=== PATIENT | male | born 1950 | race Caucasian/White ===

== ENCOUNTER → 2018-11-18 | Outpatient (CLI) | payer OTHER ==
[~2018-11-18] MED LIST: ATEN50 PO; DIGO.25 PO; GABA300 PO; LEVEMIR FL100 UNIT/1 SC; LISI5 PO; METF500 PO; Novolog Fl100 UNIT/1 SC; Sudogest60 MG PO; WARF5 PO
[2018-11-21 14:26] LABS: Stool Occult Bld Immuno 1 Negative (NEGATIVE)
== END | disposition home or self-care (01) ==
LOC: LAB 15:30 → LAB SHORT 15:30
PROVIDERS: Nurse Practitioner Family
DX: Z12.11 Encounter for screening for malignant neoplasm of colon (principal)
CPT/HCPCS: G0328

== ENCOUNTER 2019-11-22 13:48 | Emergency (ER) | payer OTHER ==
[~2019-11-22] VITALS: Ht 188 cm; Wt 103.9 kg
[2019-11-22 14:24] LABS: BASOPHILS ABSOLUTE AUTO 0.05 K/mm3 (0.00-0.23); BASOPHILS PERCENT AUTO 0 % (0-2); EOSINOPHILS ABSOLUTE AUTO 0.16 K/mm3 (0.00-0.68); EOSINOPHILS PERCENT AUTO 1 % (0-6); Hematocrit 40.9 % (37.0-53.0); Hemoglobin 13.7 g/dL (13.5-17.5); IMMATURE GRAN ABSOLUTE AUTO 0.03 K/mm3 (0.00-0.10); IMMATURE GRAN PERCENT AUTO 0 % (0-1); LYMPHOCYTES ABSOLUTE AUTO 3.43 K/mm3 (0.84-5.20); LYMPHOCYTES PERCENT AUTO 29 % (21-46); MONOCYTES PERCENT AUTO 8 % (4-13); Mean Corpuscular HGB 30.7 pg (26.0-34.0); Mean Corpuscular HGB Conc 33.5 g/dL (31.5-36.5); Mean Corpuscular Volume 92 fL (80-100); NEUTROPHILS ABSOLUTE AUTO 7.38 K/mm3 (1.96-9.15); NEUTROPHILS PERCENT AUTO 61 % (41-73); Platelet Count 331 K/mm3 (150-400); RDW Coefficient Variation 13.3 % (11.7-14.2); RDW Standard Deviation 45.3 fL (35.1-46.3); Red Blood Cell Count 4.46 M/mm3 (4.30-5.90); White Blood Cell Count 12.05 K/mm3 (4.00-11.30)
[2019-11-22 14:35] LABS: Source, Urine Clean Catch
[2019-11-22 14:45] LABS: Alanine Aminotransfer (ALT/SGP 21 U/L (12-78); Albumin, Blood 3.7 g/dL (3.4-5.0); Albumin/Globulin Ratio 0.9 (0.8-1.8); Alk Phos 90 U/L (50-136); Anion Gap 6 mmol/L (6-16); Aspartate Aminotrans (AST/SGOT 16 U/L (12-37); Bilirubin, Total 1.6 mg/dL (0.1-1.0); Blood Urea Nitrogen 16 mg/dL (8-24); Bun/Creatinine Ratio 19.5 (12.0-20.0); CO2, Blood 26 mmol/L (21-32); Calcium, Blood 9.4 mg/dL (8.5-10.1); Chloride, Blood 106 mmol/L (98-108); Creatinine, Blood 0.82 mg/dL (0.60-1.20); Globulin, Blood 4.3 g/dL (2.2-4.0); Glomerular Filtration Rate >60 (60-); Glucose, Blood 135 mg/dL (70-99); Potassium, Blood 4.4 mmol/L (3.5-5.5); Sodium, Blood 138 mmol/L (136-145)
[2019-11-22 14:56] LABS: Bilirubin, Urine Neg (Neg); Blood, Urine 5+ (Neg); Glucose Qualitative, Urine Neg (Neg); Ketones, Urine Neg (Neg); Leukocyte Esterase, Urine Neg (Neg); Nitrite, Urine Neg (Neg); Protein, Urine 1+ (Neg); Urobilinogen, Urine NORM (Normal)
[2019-11-22 15:04] LABS: Appearance, Urine Hazy (Clear); Color, Urine Yellow (P-Yellow)
[2019-11-22 15:05] LABS: Red Blood Cells, Urine TNTC /hpf (0-2); White Blood Cells, Urine 0-2 /hpf (0-5)
[2019-11-22 15:06] LABS: Bacteria Rare /hpf; Squamous Epithelial Cells Rare /hpf (Few)
[2019-11-22] MEDS ORDERED: Flomax0.4 MG PO (16:23)
[2019-11-22] MEDS ORDERED: Percocet 5-3251 EACH PO (16:23)
[2019-11-22] MEDS ORDERED: ONDA4ODT MM (16:23)
== END 2019-11-22 16:42 | disposition home or self-care (01) ==
LOC: ER 13:48
PROVIDERS: Emergency Medicine; Physician Assistant
DX: N20.0 Calculus of kidney (principal); I10 Essential (primary) hypertension; E11.9 Type 2 diabetes mellitus without complications; I48.91 Unspecified atrial fibrillation; Z88.5 Allergy status to narcotic agent; Z79.4 Long term (current) use of insulin; Z79.899 Other long term (current) drug therapy; Z79.01 Long term (current) use of anticoagulants; Z95.0 Presence of cardiac pacemaker
CPT/HCPCS: 36415; 80053; 81001; 85025; 99284

== ENCOUNTER → 2021-04-07 | Outpatient (CLI) | payer OTHER ==
[~2021-04-07] MED LIST changes: +Flomax0.4 MG PO; +ONDA4ODT MM; +Percocet 5-3251 EACH PO
[2021-04-07 18:03] LABS: Alanine Aminotransfer (ALT/SGP 17 U/L (12-78); Albumin, Blood 3.4 g/dL (3.4-5.0); Albumin/Globulin Ratio 0.9 (0.8-1.8); Alk Phos 91 U/L (50-136); Anion Gap 5 mmol/L (6-16); Aspartate Aminotrans (AST/SGOT 10 U/L (12-37); Blood Urea Nitrogen 15 mg/dL (8-24); Bun/Creatinine Ratio 16.4 (12.0-20.0); CO2, Blood 27 mmol/L (21-32); Calcium, Blood 8.6 mg/dL (8.5-10.1); Chloride, Blood 106 mmol/L (98-108); Creatinine, Blood 0.92 mg/dL (0.60-1.20); Globulin, Blood 3.9 g/dL (2.2-4.0); Glomerular Filtration Rate >60 (60-); Glucose, Blood 179 mg/dL (70-99); Phosphorus, Blood 3.3 mg/dL (2.5-4.9); Potassium, Blood 4.7 mmol/L (3.5-5.5); Sodium, Blood 138 mmol/L (136-145); Total Protein, Blood 7.3 g/dL (6.4-8.2)
== END ==
LOC: LAB SHORT 12:09
PROVIDERS: Internal Medicine Hematology & Oncology
DX: D47.2 Monoclonal gammopathy (principal)
CPT/HCPCS: 80053; 84100

== ENCOUNTER → 2021-08-04 | Outpatient (CLI) | payer OTHER ==
[2021-08-04 13:44] LABS: Percent Saturation 19.6 % (20.0-50.0)
== END | disposition home or self-care (01) ==
LOC: LAB 10:31 → LAB SHORT 10:31
PROVIDERS: Internal Medicine Hematology & Oncology
DX: D47.2 Monoclonal gammopathy (principal); E61.1 Iron deficiency
CPT/HCPCS: 82728; 83521; 83540; 83550

== ENCOUNTER → 2023-08-06 | Outpatient (CLI) | payer OTHER ==
[~2023-08-06] MED LIST changes: +ASPI81CH PO; +ATOR20 PO; +ATOR40TA PO; +ELIQUIS5 M2 PO; +FERSU300 PO; +INSULANPEN SC; -LEVEMIR FL100 UNIT/1 SC; +LEVEMIR100 UNIT/1 SC; +METO25ER PO; +TAMS.4ER PO
[2023-08-06 12:12] LABS: BASOPHILS ABSOLUTE AUTO 0.04 K/mm3 (0.00-0.23); BASOPHILS PERCENT AUTO 0 % (0-2); EOSINOPHILS ABSOLUTE AUTO 0.14 K/mm3 (0.00-0.68); EOSINOPHILS PERCENT AUTO 2 % (0-6); Hematocrit 42.5 % (37.0-53.0); Hemoglobin 14.4 g/dL (13.5-17.5); IMMATURE GRAN ABSOLUTE AUTO 0.01 K/mm3 (0.00-0.10); IMMATURE GRAN PERCENT AUTO 0 % (0-1); LYMPHOCYTES ABSOLUTE AUTO 3.16 K/mm3 (0.84-5.20); LYMPHOCYTES PERCENT AUTO 34 % (21-46); MONOCYTES ABSOLUTE AUTO 0.62 K/mm3 (0.16-1.47); MONOCYTES PERCENT AUTO 7 % (4-13); Mean Corpuscular HGB Conc 33.9 g/dL (31.5-36.5); Mean Corpuscular Volume 92 fL (80-100); Mean Platelet Volume 10.9 fL (9.1-12.4); NEUTROPHILS ABSOLUTE AUTO 5.31 K/mm3 (1.96-9.15); NEUTROPHILS PERCENT AUTO 57 % (41-73); Platelet Count 374 K/mm3 (150-400); RDW Coefficient Variation 14.3 % (11.7-14.2); Red Blood Cell Count 4.64 M/mm3 (4.30-5.90); White Blood Cell Count 9.28 K/mm3 (4.00-11.30)
[2023-08-06 12:25] LABS: Albumin, Blood 3.7 g/dL (3.4-5.0); Albumin/Globulin Ratio 0.6 (0.8-1.8); Bilirubin, Total 2.3 mg/dL (0.1-1.0); Bun/Creatinine Ratio 16.9 (12.0-20.0); Creatinine, Blood 0.89 mg/dL (0.60-1.20); Globulin, Blood 6.1 g/dL (2.2-4.0); Potassium, Blood 3.7 mmol/L (3.5-5.5); Total Protein, Blood 9.8 g/dL (6.4-8.2)
== END ==
LOC: LAB 11:17 → LAB SHORT 11:17
PROVIDERS: Student in an Organized Health Care Education/Training Program
DX: R11.2 Nausea with vomiting, unspecified (principal)
CPT/HCPCS: 80053; 85025

== ENCOUNTER 2023-11-12 15:20 | Inpatient (IN) | payer OTHER ==
[~2023-11-12] VITALS: Ht 188 cm; Wt 103.4 kg
[2023-11-12] MEDS ORDERED: Lactated Ringer's 1,000 ML IV SCH ×3 (18:30→23:20)
[2023-11-12] MEDS ORDERED: Ondansetron HCl 2 MG / ML 2ML Vial IV ONE (18:35)
[2023-11-12] MEDS ORDERED: FentaNYL Citrate 50 MCG/ML 2 ML Injection IV ONE ×3 (18:35→22:40)
[2023-11-12 18:43] LABS: BASOPHILS ABSOLUTE AUTO 0.04 K/mm3 (0.00-0.23); BASOPHILS PERCENT AUTO 0 % (0-2); EOSINOPHILS ABSOLUTE AUTO 0.02 K/mm3 (0.00-0.68); EOSINOPHILS PERCENT AUTO 0 % (0-6); Hematocrit 31.6 % (37.0-53.0); Hemoglobin 10.8 g/dL (13.5-17.5); IMMATURE GRAN ABSOLUTE AUTO 0.03 K/mm3 (0.00-0.10); IMMATURE GRAN PERCENT AUTO 0 % (0-1); LYMPHOCYTES PERCENT AUTO 21 % (21-46); MONOCYTES ABSOLUTE AUTO 0.92 K/mm3 (0.16-1.47); MONOCYTES PERCENT AUTO 8 % (4-13); Mean Corpuscular HGB 31.5 pg (26.0-34.0); Mean Corpuscular HGB Conc 34.2 g/dL (31.5-36.5); Mean Corpuscular Volume 92 fL (80-100); Mean Platelet Volume 10.8 fL (9.1-12.4); NEUTROPHILS ABSOLUTE AUTO 8.62 K/mm3 (1.96-9.15); NEUTROPHILS PERCENT AUTO 71 % (41-73); Platelet Count 320 K/mm3 (150-400); RDW Coefficient Variation 13.6 % (11.7-14.2); RDW Standard Deviation 45.9 fL (35.1-46.3); Red Blood Cell Count 3.43 M/mm3 (4.30-5.90); White Blood Cell Count 12.13 K/mm3 (4.00-11.30)
[2023-11-12 18:50] LABS: International Normalized Ratio 0.99; Prothrombin Time Results 10.6 Sec (9.7-11.5)
[2023-11-12 18:58] LABS: Albumin, Blood 3.7 g/dL (3.4-5.0); Albumin/Globulin Ratio 0.7 (0.8-1.8); Bilirubin, Total 2.2 mg/dL (0.1-1.0); Bun/Creatinine Ratio 33.8 (12.0-20.0); Calcium, Blood 8.7 mg/dL (8.5-10.1); Creatinine, Blood 0.92 mg/dL (0.60-1.20); Globulin, Blood 5.1 g/dL (2.2-4.0); Potassium, Blood 4.7 mmol/L (3.5-5.5); Total Protein, Blood 8.8 g/dL (6.4-8.2)
[2023-11-12 20:34] LABS: Source, Urine Clean Catch
[2023-11-12 20:52] LABS: Bilirubin, Urine Neg (Neg); Blood, Urine Neg (Neg); Glucose Qualitative, Urine 4+ (Neg); Ketones, Urine 3+ (Neg); Leukocyte Esterase, Urine Neg (Neg); Nitrite, Urine Neg (Neg); Protein, Urine Neg (Neg); Specific Gravity, Urine 1.015 (1.003-1.022); Urobilinogen, Urine NORM (Normal)
[2023-11-12 20:58] LABS: Appearance, Urine Clear (Clear); Color, Urine Pale Yellow (P-Yellow)
[2023-11-12] MEDS ORDERED: Acetaminophen 325 MG TABLET PO PRN (21:25)
[2023-11-12] MEDS ORDERED: FentaNYL Citrate 50 MCG/ML 2 ML Injection ONE (22:34)
[2023-11-12] MEDS ORDERED: Morphine Sulfate 4 MG/1 ML Injection IV ONE (23:20)
[2023-11-12 23:38] VITALS: BP 172/83
[2023-11-13 00:05] LABS: Hematocrit 29.3 % (37.0-53.0); Hemoglobin 10.1 g/dL (13.5-17.5); Mean Corpuscular HGB Conc 34.5 g/dL (31.5-36.5); Mean Corpuscular Volume 93 fL (80-100); Mean Platelet Volume 10.8 fL (9.1-12.4); Platelet Count 307 K/mm3 (150-400); RDW Coefficient Variation 13.4 % (11.7-14.2); RDW Standard Deviation 45.4 fL (35.1-46.3); Red Blood Cell Count 3.16 M/mm3 (4.30-5.90); White Blood Cell Count 11.03 K/mm3 (4.00-11.30)
--- NOTE | 2023-11-13 00:50 | NUR ---
NOTIFIED DR JOHNSON OF CRITICAL RESULT 2.7 LACTIC,REVIEWED WITH DOCTOR LABS, ASSESSMENT OF PT,PT C/O L CHEST PAIN WHICH HE REPORTED SITE OF INJURY AND SAME PAIN ON INITIAL ADMIT.HOWEVER, REPORTED TO HIS FLOOR NURSE FELT LIKE "HEART ATTACK" I DISCUSSED THIS WITH DOCTOR WELL. I ADVISED DR THERE WERE NO CARE ORDERS FOR THIS PT AND HE STATED HE WOULD REVIEW AND PUT IN ORDERS.
[2023-11-13] MEDS ORDERED: TraMADol HCl 50 MG Tab PO PRN (01:10)
[2023-11-13] MEDS ORDERED: NS 1,000 ML IV SCH (02:00)
[2023-11-13 02:30] VITALS: BP 155/85
--- NOTE | 2023-11-13 04:13 | NUR ---
SHIFT SUMMARY A&OX4. PT ABLE TO VOICE NEEDS, CALL LIGHT IN REACH. PAIN MANAGED WITH NPIS AND PER EMAR. CHEST TUBE SETTINGS PER MD ORDERS, PATENT. THICK SANGUINOUS OUTPUT. IVF PER MD ORDERS. NPO STATUS, SIPS WITH PO MEDICATIONS. PT ABLE TO REST DURING SHIFT. VOIDING WITH BEDSIDE URINAL. PT VOICED UNDERSTANDING, DENIES QUESTIONS/CONCERNS AT THIS TIME.
[2023-11-13 04:55] LABS: BASOPHILS ABSOLUTE AUTO 0.02 K/mm3 (0.00-0.23); BASOPHILS PERCENT AUTO 0 % (0-2); EOSINOPHILS PERCENT AUTO 0 % (0-6); Hematocrit 27.4 % (37.0-53.0); Hemoglobin 9.5 g/dL (13.5-17.5); IMMATURE GRAN ABSOLUTE AUTO 0.06 K/mm3 (0.00-0.10); IMMATURE GRAN PERCENT AUTO 1 % (0-1); LYMPHOCYTES ABSOLUTE AUTO 2.28 K/mm3 (0.84-5.20); LYMPHOCYTES PERCENT AUTO 19 % (21-46); MONOCYTES ABSOLUTE AUTO 0.81 K/mm3 (0.16-1.47); MONOCYTES PERCENT AUTO 7 % (4-13); Mean Corpuscular HGB 32.3 pg (26.0-34.0); Mean Corpuscular HGB Conc 34.7 g/dL (31.5-36.5); Mean Corpuscular Volume 93 fL (80-100); NEUTROPHILS ABSOLUTE AUTO 8.62 K/mm3 (1.96-9.15); NEUTROPHILS PERCENT AUTO 73 % (41-73); Platelet Count 293 K/mm3 (150-400); RDW Coefficient Variation 13.4 % (11.7-14.2); RDW Standard Deviation 45.8 fL (35.1-46.3); Red Blood Cell Count 2.94 M/mm3 (4.30-5.90); White Blood Cell Count 11.79 K/mm3 (4.00-11.30)
[2023-11-13 05:14] LABS: Albumin, Blood 3.1 g/dL (3.4-5.0); Albumin/Globulin Ratio 0.7 (0.8-1.8); Bilirubin, Total 1.7 mg/dL (0.1-1.0); Bun/Creatinine Ratio 27.4 (12.0-20.0); Calcium, Blood 8.3 mg/dL (8.5-10.1); Creatinine, Blood 0.8 mg/dL (0.60-1.20); Globulin, Blood 4.6 g/dL (2.2-4.0); Total Protein, Blood 7.7 g/dL (6.4-8.2)
[2023-11-13] MEDS ORDERED: Insulin Regular 100 UNIT/ML 10ML Vial SC SCH ×2 (06:00→12:05)
[2023-11-13 07:11] VITALS: BP 131/67
[2023-11-13] MEDS ORDERED: Insulin Glargine-Yfgn 100 Unit/mL 3 ML SYR SC SCH ×2 (12:00→21:00)
[2023-11-13 12:50] LABS: Percent Saturation 13.1 % (20.0-50.0)
[2023-11-13] MEDS ORDERED: Metoprolol Succinate 25 MG TABCR PO SCH (13:00)
[2023-11-13 13:24] VITALS: BP 144/70
[2023-11-13 14:41] VITALS: BP 135/61
[2023-11-13] MEDS ORDERED: Insulin Human Lispro 100 Units/ML 3ML Syringe SC SCH ×2 (16:30→18:35)
[2023-11-13 19:27] VITALS: BP 135/55
--- NOTE | 2023-11-13 20:17 | NUR ---
SHIFT SUMMARY PT HAS CHEST TO TO -20, NO AIR LEAK. PAIN MANAGED WITH TYLENOL AND ULTRAM. PT IS PAINFUL WITH MOVEMENT AND DECLINED TO GET OOB THIS SHIFT. PT ALERT/ORIENTED. PT CALLS APPROPRIATELY. BEDSIDE REPORT GIVEN TO NANCY MINAYA.
[2023-11-14 03:22] VITALS: BP 113/70
[2023-11-14 04:10] LABS: Hematocrit 26.9 % (37.0-53.0); Hemoglobin 9.2 g/dL (13.5-17.5); Mean Corpuscular HGB 31.6 pg (26.0-34.0); Mean Corpuscular HGB Conc 34.2 g/dL (31.5-36.5); Mean Corpuscular Volume 92 fL (80-100); Mean Platelet Volume 10.4 fL (9.1-12.4); Platelet Count 288 K/mm3 (150-400); RDW Coefficient Variation 13.4 % (11.7-14.2); RDW Standard Deviation 45.3 fL (35.1-46.3); Red Blood Cell Count 2.91 M/mm3 (4.30-5.90); White Blood Cell Count 10.56 K/mm3 (4.00-11.30)
[2023-11-14 04:32] LABS: Bun/Creatinine Ratio 26.2 (12.0-20.0); Calcium, Blood 8.2 mg/dL (8.5-10.1); Creatinine, Blood 0.73 mg/dL (0.60-1.20); Potassium, Blood 3.6 mmol/L (3.5-5.5)
--- NOTE | 2023-11-14 05:19 | NUR ---
SHIFT SUMMARY PT ABLE TO REST MOST OF NIGHT. CHEST TUBE IN PLACE DRAINING SEROSANGUINEOUS FLUID, NO SIGNS OF AIR LEAK. VSS. PAIN PANAGED W/ PO TRAMADOL. PT TOLERATING PO FLUIDS AND DIET. URINATING IND IN URINAL. CALLING APPROPRIATELY.
[2023-11-14 07:17] VITALS: BP 130/76
[2023-11-14] MEDS ORDERED: Docusate Sodium 100 MG Cap PO SCH (09:00)
[2023-11-14 14:49] VITALS: BP 136/64
--- NOTE | 2023-11-14 19:17 | NUR ---
SHIFT SUMMARY UNCHANGED T/O SHIFT. CT TO SX T/O SHIFT. WEAK COUGH. ENCOURAGED TCDB.
[2023-11-14 19:24] VITALS: BP 143/72
[2023-11-15 00:17] VITALS: BP 135/86
[2023-11-15 05:14] LABS: Hematocrit 27.5 % (37.0-53.0); Hemoglobin 9.6 g/dL (13.5-17.5)
[2023-11-15 05:18] VITALS: BP 144/73
--- NOTE | 2023-11-15 07:34 | NUR ---
SHIFT SUMMARY NOC. PT ADMITTED WITH FX RIBS AND HEMOTHORAX. PT A/O X4, PT MEDICATED FOR PAIN IN CHEST TUBE SITE X2 WITH REPORTED RELIEF OF SX. PT VOIDING URINE INDEPENDENTLY VIA URINAL AND TOLERATING PO INTAKE. PT ON RA WITH BIOX INPLACE, DENIED SX OF SOB AND NO ACUTE EVENTS THIS SHIFT. CALL LIGHT IN REACH.
[2023-11-15 07:43] VITALS: BP 141/88
[2023-11-15] MEDS ORDERED: Magnesium Hydroxide Conc 10 ML UDC PO PRN (12:00)
[2023-11-15 15:27] VITALS: BP 125/74
[2023-11-15] MEDS ORDERED: Ferrous Sulfate 325 MG Tab PO SCH (17:00)
[2023-11-15 19:29] VITALS: BP 135/68
--- NOTE | 2023-11-15 19:41 | NUR ---
SHIFT SUMMARY PT DECLINES GETTING OOB, BUT MOVED WELL FOR BEDBATH. PAIN WELL CONTROLLED. CT CONTINUES TO HAVE OUTPUT.
[2023-11-15 23:21] VITALS: BP 133/65
[2023-11-16 04:05] VITALS: BP 130/82
[2023-11-16 05:22] LABS: BASOPHILS ABSOLUTE AUTO 0.02 K/mm3 (0.00-0.23); BASOPHILS PERCENT AUTO 0 % (0-2); EOSINOPHILS ABSOLUTE AUTO 0.05 K/mm3 (0.00-0.68); EOSINOPHILS PERCENT AUTO 0 % (0-6); Hematocrit 27.1 % (37.0-53.0); Hemoglobin 9.4 g/dL (13.5-17.5); IMMATURE GRAN ABSOLUTE AUTO 0.02 K/mm3 (0.00-0.10); IMMATURE GRAN PERCENT AUTO 0 % (0-1); LYMPHOCYTES ABSOLUTE AUTO 2.92 K/mm3 (0.84-5.20); LYMPHOCYTES PERCENT AUTO 25 % (21-46); MONOCYTES ABSOLUTE AUTO 1.21 K/mm3 (0.16-1.47); MONOCYTES PERCENT AUTO 11 % (4-13); Mean Corpuscular HGB 31.5 pg (26.0-34.0); Mean Corpuscular HGB Conc 34.7 g/dL (31.5-36.5); Mean Corpuscular Volume 91 fL (80-100); Mean Platelet Volume 10.6 fL (9.1-12.4); NEUTROPHILS ABSOLUTE AUTO 7.35 K/mm3 (1.96-9.15); NEUTROPHILS PERCENT AUTO 64 % (41-73); Platelet Count 390 K/mm3 (150-400); RDW Coefficient Variation 13.2 % (11.7-14.2); RDW Standard Deviation 43.4 fL (35.1-46.3); Red Blood Cell Count 2.98 M/mm3 (4.30-5.90); White Blood Cell Count 11.57 K/mm3 (4.00-11.30)
[2023-11-16 05:52] LABS: Albumin, Blood 2.4 g/dL (3.4-5.0); Albumin/Globulin Ratio 0.4 (0.8-1.8); Bilirubin, Total 1.3 mg/dL (0.1-1.0); Bun/Creatinine Ratio 23.6 (12.0-20.0); Calcium, Blood 8.5 mg/dL (8.5-10.1); Creatinine, Blood 0.72 mg/dL (0.60-1.20); Globulin, Blood 5.4 g/dL (2.2-4.0); Potassium, Blood 3.3 mmol/L (3.5-5.5); Total Protein, Blood 7.8 g/dL (6.4-8.2)
--- NOTE | 2023-11-16 07:15 | NUR ---
SHIFT SUMMARY NOC. PT ADMITTED WITH FX RIBS AND HEMOTHORAX. PT A/O X4, PT DANGLED AT EDGE OF BED THIS SHIFT. CHEST TUBE CONNECTED WITH NO KINKS, PRODUCING SEROSSANG DRAINAGE OUTPUT OF 50ML. PT DENIED PAIN THIS SHIFT. BIOX IN PLACE, DENIED SX OF SOB. CALL LIGHT IN REACH.
[2023-11-16 07:32] VITALS: BP 140/76
[2023-11-16] MEDS ORDERED: Polyethylene Glycol 3350 17 gm PO PRN (08:10)
[2023-11-16] MEDS ORDERED: Potassium Chloride 20 MEQ TabCR PO ONE (08:10)
[2023-11-16] MEDS ORDERED: Acetaminophen 500 MG Tab PO SCH (08:30)
[2023-11-16] MEDS ORDERED: NOVOLOG FL100 UNIT/3 SC (13:07)
[2023-11-16] MEDS ORDERED: METFORMIN HCL500 M2 PO (13:08)
[2023-11-16 14:26] VITALS: BP 110/71
--- NOTE | 2023-11-16 18:10 | NUR ---
SHIFT SUMMARY PT A&O X4, UP TO CHAIR MOST OF AFTERNOON. CONTINUOUS PULSE OX IN PLACE./ CT DRAINING SEROSANGENOUS FLUID WITHOUT KINKS OR OCCLUSIONS. CALL LIGHT IN REACH. PT DENIES OTHER NEEDS AT THIS TIME.
[2023-11-16 19:53] VITALS: BP 131/81
--- NOTE | 2023-11-16 20:13 | NUR ---
SHIFT SUMMARY CHEST TUBE REMAINS IN PLACE. PT TOLERATING WELL. HE HAS BEEN ON RA T/O THE DAY. PAIN HAS BEEN MANAGED WITH TYLENOL AND ULTRAM. PT REPORTS INCREASE IN L RIB PAIN THIS EVENING AFTER ATTEMPTING TO PULL HIS GOWN OUT FROM BEHIND HIM. PT ENCOURAGED TO ASK FOR ASSISTANCE WITH REPOSITIONING IN ORDER TO PREVENT PAIN OR RISK DISLODGING THE CHEST TUBE. PT IS A 1-2 ASSIST WHEN OOB, HE REQUIRES HELP WITH LINES AND TUBES. CHEST TUBE DRAINAGE WAS 40ML THIS SHIFT. NO AIR LEAK PRESENT. BOWEL CARE PROTOCOL STARTED. PT USES CALL LIGHT APPROPRIATELY. BEDSIDE REPORT GIVEN TO NANCY RODRÍGUEZ.
[2023-11-16] MEDS ORDERED: Docusate Sodium/Senna 1 Tab PO SCH (21:00)
[2023-11-17 00:18] VITALS: BP 150/80
[2023-11-17 04:16] VITALS: BP 132/80
[2023-11-17 04:32] LABS: Hematocrit 25.6 % (37.0-53.0); Hemoglobin 8.9 g/dL (13.5-17.5); Mean Corpuscular HGB 31.7 pg (26.0-34.0); Mean Corpuscular HGB Conc 34.8 g/dL (31.5-36.5); Mean Corpuscular Volume 91 fL (80-100); Mean Platelet Volume 10.1 fL (9.1-12.4); Platelet Count 378 K/mm3 (150-400); RDW Coefficient Variation 13.2 % (11.7-14.2); RDW Standard Deviation 43.8 fL (35.1-46.3); Red Blood Cell Count 2.81 M/mm3 (4.30-5.90); White Blood Cell Count 9.89 K/mm3 (4.00-11.30)
[2023-11-17 04:58] LABS: Albumin, Blood 2.1 g/dL (3.4-5.0); Anion Gap 11 mmol/L (3-11); Blood Urea Nitrogen 18 mg/dL (8-24); Bun/Creatinine Ratio 23.8 (12.0-20.0); CO2, Blood 27 mmol/L (21-32); Calcium, Blood 8.4 mg/dL (8.5-10.1); Chloride, Blood 101 mmol/L (98-108); Creatinine, Blood 0.76 mg/dL (0.60-1.20); Ferritin, Serum 103 ng/mL (26-388); Glomerular Filtration Rate 95 (60-); Glucose, Blood 252 mg/dL (70-99); Iron Serum 14 ug/dL (65-175); Percent Saturation 7.1 % (20.0-50.0); Phosphorus, Blood 2.4 mg/dL (2.5-4.9); Potassium, Blood 3.7 mmol/L (3.5-5.5); Sodium, Blood 135 mmol/L (136-145); Total Iron Binding Capacity 196 ug/dL (250-450)
--- NOTE | 2023-11-17 05:13 | NUR ---
SHIFT SUMMARY NOC. PT ADMITTED WITH FX RIBS AND HEMOTHORAX. A/O X4, CHEST TUBE CONNECTED WITHOUT KINKS TO COLLECTION SYSTEM. PRODUCING SS DRAINAGE. PT DENIES SOB, BUT HAS PAIN WITH DEEP INSPIRATION. LUNG SOUNDS IMPROVED SINCE LAST SHIFT WITH PT. PT DECLINED SCHEDULED TYLENOL. NO BM THIS SHIFT, DENIES N/V OR ABD PAIN. THERAPEUTIC COMMUNICATION PROVIDED AND PT SMILING AND LAUGHING AT TIMES. CALL LIGHT IN REACH.
[2023-11-17 07:38] VITALS: BP 111/71
[2023-11-17 15:20] VITALS: BP 96/72
[2023-11-17] MEDS ORDERED: Sodium Phosphate Mono/Dibasic 250 MG Tab PO SCH (17:00)
[2023-11-17 17:19] VITALS: BP 143/85
[2023-11-17 19:26] VITALS: BP 121/81
--- NOTE | 2023-11-17 19:57 | NUR ---
SHIFT SUMMARY CHEST TUBE REMAINS IN PLACE, NO OUTPUT THIS SHIFT EXCEPT SEROSANGUINOUS FLUID PRESENT IN TUBE. NO AIR LEAK. PAIN MANAGED WITH TYLENOL. PER DR. GARCIA CHEST TUBE MAY BE REMOVED TOMORROW. BEDSIDE REPORT GIVEN TO NANCY MINAYA.
[2023-11-18 00:16] VITALS: BP 108/77
[2023-11-18 04:09] LABS: Hemoglobin 9.3 g/dL (13.5-17.5); Mean Corpuscular HGB 31.3 pg (26.0-34.0); Mean Corpuscular HGB Conc 34.4 g/dL (31.5-36.5); Mean Corpuscular Volume 91 fL (80-100); Mean Platelet Volume 9.6 fL (9.1-12.4); Platelet Count 433 K/mm3 (150-400); RDW Coefficient Variation 13.2 % (11.7-14.2); RDW Standard Deviation 43.8 fL (35.1-46.3); Red Blood Cell Count 2.97 M/mm3 (4.30-5.90); White Blood Cell Count 9.91 K/mm3 (4.00-11.30)
[2023-11-18 04:21] VITALS: BP 126/72
--- NOTE | 2023-11-18 06:19 | NUR ---
SHIFT SUMMARY PT RESTED T/O SHIFT. PAIN MANAGED PER EMAR. TOLERTING PO INTAKE. VOIDING. CHEST TUBE IN PLACE. NO AIR LEAK, NO NEW DRAINAGE. VSS. NO OTHER CONCERNS AT THIS TIME, CALL LIGHT WITHIN REACH
[2023-11-18 06:36] LABS: Albumin, Blood 2.1 g/dL (3.4-5.0); Anion Gap 10 mmol/L (3-11); Blood Urea Nitrogen 19 mg/dL (8-24); Bun/Creatinine Ratio 24.9 (12.0-20.0); CO2, Blood 27 mmol/L (21-32); Calcium, Blood 8.6 mg/dL (8.5-10.1); Chloride, Blood 104 mmol/L (98-108); Creatinine, Blood 0.76 mg/dL (0.60-1.20); Glomerular Filtration Rate 95 (60-); Glucose, Blood 76 mg/dL (70-99); Phosphorus, Blood 4.1 mg/dL (2.5-4.9); Potassium, Blood 3.6 mmol/L (3.5-5.5); Sodium, Blood 137 mmol/L (136-145)
[2023-11-18 07:05] VITALS: BP 122/73
--- NOTE | 2023-11-18 10:10 | NUR ---
PT REPORTS HE HAS LLE "SCIATIC NERVE" NUMBNESS. PT STILL ABLE TO MOVE HIS LEG AND WIGGLE TOES. PT PULLED IV BECAUSE "HE WANTED TO". EDUCATED ON IMPORTANCE OF NOTIFYING NURSING STAFF IF NEEDING ASSISTANCE WITH MEDICAL EQUIPMENT. PT DECLINED HAVING A NEW IV PLACED. GENERAL COUNSEL NOTIFIED.
[2023-11-18] MEDS ORDERED: TRAM50 PO (12:13)
[2023-11-18] MEDS ORDERED: METO25ER PO (12:18)
[2023-11-18] MEDS ORDERED: ACET500 PO (12:18)
--- NOTE | 2023-11-18 12:26 | NUR ---
DISCHARGE PT EDUCATED ON AND RECEIVED PRINTED DC INSTRUCTIONS AND VERB AN UNDERSTANDING. HARD RX FOR TRAMADOL GIVEN TO PT. OTHER NEW RX FAXED TO [facility] PER PT REQUEST. PT GATHERED ALL PERSONAL BELONGINGS. RIDE HOME SET UP BY PRINCIPAL TECHNICAL SPECIALIST AT APPROX 1300.
== END 2023-11-18 12:49 | disposition home or self-care (01) | DRG 200 ==
LOC: ER 15:20 → SURS 15:21
PROVIDERS: Internal Medicine; Student in an Organized Health Care Education/Training Program; ADMIT Surgery
PROC: 0W9B30Z Drainage of Left Pleural Cavity with Drainage Device, Percutaneous Approach (ICD-10-PCS; principal; 2023-11-13)
DX: S27.1XXA Traumatic hemothorax, initial encounter (principal); D62 Acute posthemorrhagic anemia; E87.20 Acidosis, unspecified; S22.42XA Multiple fractures of ribs, left side, initial encounter for closed fracture; E83.39 Other disorders of phosphorus metabolism; I48.91 Unspecified atrial fibrillation; I10 Essential (primary) hypertension; E11.65 Type 2 diabetes mellitus with hyperglycemia; D50.9 Iron deficiency anemia, unspecified; K59.00 Constipation, unspecified; Z79.01 Long term (current) use of anticoagulants; Z86.73 Personal history of transient ischemic attack (TIA), and cerebral infarction without residual deficits; W22.8XXA Striking against or struck by other objects, initial encounter; Z79.899 Other long term (current) drug therapy; Z79.82 Long term (current) use of aspirin; Z79.4 Long term (current) use of insulin; Z87.442 Personal history of urinary calculi; Z95.0 Presence of cardiac pacemaker
CPT/HCPCS: 32551; 36415; 70450; 71045; 71101; 71260; 74177; 80048; 80053; 80069; 81003; 82728; 82947; 83540; 83550; 83605; 84484; 85014; 85018; 85025; 85027; 85610; 86850; 86900; 86901; 93005; 93010; 94760; 96374-59; 96375; 96375-59; 96376-59; 97110; 97162; 97530; 99285-25; A9270; G0378; J1815; J2270; J2405; J3010; J7030; J7120; Q9967

== ENCOUNTER 2023-12-21 15:34 | Emergency (ER) | payer OTHER ==
[~2023-12-21] VITALS: Ht 188 cm; Wt 86.6 kg
[~2023-12-21 15:34] MED LIST changes: +ACET500 PO; +METFORMIN HCL500 M2 PO; +NOVOLOG FL100 UNIT/3 SC; +TRAM50 PO
[2023-12-21 16:18] LABS: BASOPHILS ABSOLUTE AUTO 0.04 K/mm3 (0.00-0.23); BASOPHILS PERCENT AUTO 1 % (0-2); EOSINOPHILS ABSOLUTE AUTO 0.08 K/mm3 (0.00-0.68); EOSINOPHILS PERCENT AUTO 1 % (0-6); Hemoglobin 12.3 g/dL (13.5-17.5); IMMATURE GRAN ABSOLUTE AUTO 0.02 K/mm3 (0.00-0.10); IMMATURE GRAN PERCENT AUTO 0 % (0-1); LYMPHOCYTES ABSOLUTE AUTO 2.41 K/mm3 (0.84-5.20); LYMPHOCYTES PERCENT AUTO 32 % (21-46); MONOCYTES PERCENT AUTO 8 % (4-13); Mean Corpuscular HGB 30.1 pg (26.0-34.0); Mean Corpuscular HGB Conc 34.2 g/dL (31.5-36.5); Mean Corpuscular Volume 88 fL (80-100); Mean Platelet Volume 10.6 fL (9.1-12.4); NEUTROPHILS ABSOLUTE AUTO 4.32 K/mm3 (1.96-9.15); NEUTROPHILS PERCENT AUTO 58 % (41-73); Platelet Count 343 K/mm3 (150-400); RDW Coefficient Variation 14.3 % (11.7-14.2); RDW Standard Deviation 45.8 fL (35.1-46.3); Red Blood Cell Count 4.08 M/mm3 (4.30-5.90); White Blood Cell Count 7.47 K/mm3 (4.00-11.30)
[2023-12-21 17:03] LABS: Beta-hydroxybutyrate 12.5 mg/dL (0.2-2.8)
[2023-12-21 17:19] LABS: Albumin/Globulin Ratio 0.5 (0.8-1.8); Bilirubin, Total 1.2 mg/dL (0.1-1.0); Bun/Creatinine Ratio 27.2 (12.0-20.0); Calcium, Blood 8.7 mg/dL (8.5-10.1); Creatinine, Blood 0.81 mg/dL (0.60-1.20); Globulin, Blood 6.2 g/dL (2.2-4.0); Potassium, Blood 4.4 mmol/L (3.5-5.5); Total Protein, Blood 9.2 g/dL (6.4-8.2)
[2023-12-21 18:06] LABS: Source, Urine Clean Catch
[2023-12-21 18:08] LABS: Appearance, Urine Clear (Clear); Bilirubin, Urine Neg (Neg); Blood, Urine Neg (Neg); Color, Urine Yellow (P-Yellow); Glucose Qualitative, Urine 4+ (Neg); Ketones, Urine 2+ (Neg); Leukocyte Esterase, Urine Neg (Neg); Nitrite, Urine Neg (Neg); Protein, Urine Neg (Neg); Specific Gravity, Urine 1.015 (1.003-1.022); Urobilinogen, Urine NORM (Normal)
[2023-12-21] MEDS ORDERED: Lactated Ringer's 1,000 ML IV ONE (18:10)
[2023-12-21] MEDS ORDERED: Insulin Human Lispro 100 Units/ML 3ML Syringe SC ONE (18:15)
[2023-12-21 18:26] LABS: Base Excess Venous 2.7 mmol/L; Bicarbonate Venous 25.4 mmol/L (24.0-30.0); PCO2 Venous 51.5 mmHg (38-42); pH Blood Venous 7.35 (7.34-7.37)
[2023-12-21] MEDS ORDERED: Insulin Regular 100 Unit/ML 1ML Dose IV ONE (20:00)
[2023-12-21 21:06] LABS: Glucose, Blood 208 mg/dL (70-99)
[2023-12-21] MEDS ORDERED: NOVOLOG FL100 UNIT/3 SC (21:55)
[2023-12-21 22:00] VITALS: BP 93/77
== END 2023-12-21 22:15 | disposition home or self-care (01) ==
LOC: ER 15:34
PROVIDERS: Physician Assistant; Student in an Organized Health Care Education/Training Program
DX: E11.65 Type 2 diabetes mellitus with hyperglycemia (principal); I48.91 Unspecified atrial fibrillation; Z95.0 Presence of cardiac pacemaker; Z91.148 Patient's other noncompliance with medication regimen for other reason; Z79.4 Long term (current) use of insulin; Z79.84 Long term (current) use of oral hypoglycemic drugs; Z79.01 Long term (current) use of anticoagulants; Z79.899 Other long term (current) drug therapy
CPT/HCPCS: 80053; 81003; 82010; 82803; 82947; 85025; 96360; 99283-25; J1815; J7120